=== PATIENT | male | born 1985 | race Two or more races ===

== ENCOUNTER 2017-06-06 11:37 | Emergency (ER) | payer MEDICAID ==
[~2017-06-06] VITALS: Ht 172.7 cm; Wt 88.0 kg
[2017-06-06 11:49] VITALS: BP 146/99
== END 2017-06-06 14:10 | disposition home or self-care (01) ==
LOC: ER 11:37
DX: M79.1 Myalgia (principal); M54.2 Cervicalgia
CPT/HCPCS: 72100; 72125

== ENCOUNTER 2017-06-28 21:37 | Emergency (ER) | payer MEDICAID ==
[~2017-06-28] VITALS: Ht 175.3 cm; Wt 90.7 kg
[2017-06-28 22:53] LABS: Basophils # (auto) 0.2 uL; Basophils % (auto) 1.1 % (0.0-2.0); Eosinophils # (auto) 0.2 uL; Eosinophils % (auto) 1.1 % (0.0-7.0); Hematocrit 46.7 % (41.0-53.0); Hemoglobin 15.6 g/dL (13.5-17.5); Lymphocytes # (auto) 2.3 uL; Lymphocytes % (auto) 15.9 % (10.0-50.0); Mean Corpuscular Hemoglobin 30.4 pg (28.0-32.0); Mean Corpuscular Hgb Conc. 33.5 g/dL (32.0-36.0); Mean Corpuscular Volume 90.8 fL (80.0-100.0); Monocytes # (auto) 1.9 uL; Monocytes % (auto) 13.4 % (0.0-12.0); Neutrophils % (auto) 68.5 % (37.0-80.0); Platelet Count (auto) 346 10^3/uL (140-450); Red Blood Cells 5.14 10^6/uL (4.5-5.90); Red Cell Distribution Width 13.3 % (11.8-14.3); White Blood Cell 14.5 10^3/uL (4.4-10.8)
[2017-06-28 23:09] LABS: Potassium 3.9 mmol/L (3.5-5.1)
[2017-06-28 23:10] LABS: Albumin 3.8 g/dL (3.4-5.0); BUN/Creatinine Ratio 14.7; Bilirubin, Total 0.6 mg/dL (0.2-1.0); Calcium 8.4 mg/dL (8.5-10.1); Total Protein 8.4 g/dL (6.4-8.2)
[2017-06-29] MEDS ORDERED: KETOROLAC TROMETH 60MG/2ML VIAL IM ONE (07:00)
[2017-06-29] MEDS ORDERED: methylPREDNISolone SOD SUCC 125 MG/2 ML VL IM ONE (07:00)
[2017-06-29 07:32] VITALS: BP 182/124
== END 2017-06-29 08:05 | disposition home or self-care (01) ==
LOC: ER 21:37
DX: M10.9 Gout, unspecified (principal); B99.8 Other infectious disease
CPT/HCPCS: 36415; 73110; 73130; 80053; 83605; 84550; 85025; 87040; 96372; 99285; J1885; J2930

== ENCOUNTER 2018-01-12 10:02 | Emergency (ER) | payer MEDICAID ==
[~2018-01-12] VITALS: Ht 167.6 cm; Wt 88.5 kg
[2018-01-12 10:09] VITALS: BP 150/104
[2018-01-12] MEDS ORDERED: PENICILLIN G BENZ 1200000 UNITS/2 ML SYRG IM ONE (12:15)
== END 2018-01-12 12:53 | disposition home or self-care (01) ==
LOC: ER 10:02
DX: J02.9 Acute pharyngitis, unspecified (principal)
CPT/HCPCS: 87804; 87880; 96372; 99284; J0561

== ENCOUNTER 2019-03-12 22:03 | Emergency (ER) | payer SELFPAY ==
[~2019-03-12] VITALS: Ht 177.8 cm; Wt 83.9 kg
[2019-03-12 23:05] VITALS: BP 169/99
== END 2019-03-13 00:26 | disposition left against medical advice (07) ==
LOC: ER 22:03
DX: M79.672 Pain in left foot (principal); M79.671 Pain in right foot; Z53.21 Procedure and treatment not carried out due to patient leaving prior to being seen by health care provider
CPT/HCPCS: 36415; 84550

== ENCOUNTER 2024-01-04 11:09 | Emergency (ER) | payer MEDICAID, OTHER ==
[~2024-01-04] VITALS: Ht 167.6 cm; Wt 95.5 kg
[2024-01-04 11:41] VITALS: BP 147/109; PULSE 100; RESP 14; TEMP 98; O2SAT 96
[2024-01-04 12:37] LABS: Chloride 109 mmol/L (98-107); Potassium 3.9 mmol/L (3.5-5.1); Sodium 140 mmol/L (136-145)
[2024-01-04 12:38] LABS: Anion Gap 7 (5-15); Basophils # (auto) 0.1 10 ^3/uL (0-0.2); Basophils % (auto) 0.8 % (0.0-2.0); Calcium 9.4 mg/dL (8.7-10.4); Carbon Dioxide 24 mmol/L (20-31); Eosinophils # (auto) 0.3 10 ^3/uL (0-0.8); Eosinophils % (auto) 1.9 % (0.0-7.0); Hematocrit 43.9 % (41.0-53.0); Lymphocytes # (auto) 2.3 10 ^3/uL (0.4-5.4); Lymphocytes % (auto) 17.3 % (10.0-50.0); Mean Corpuscular Hgb Conc. 34.3 g/dL (32.0-36.0); Mean Corpuscular Volume 87.4 fL (80.0-100.0); Monocytes % (auto) 15.4 % (0.0-12.0); Neutrophils # (auto) 8.5 10 ^3/uL (1.6-8.6); Neutrophils % (auto) 64.6 % (37.0-80.0); Platelet Count (auto) 417 10^3/uL (140-450); Red Blood Cells 5.02 10^6/uL (4.5-5.90); Red Cell Distribution Width 14.9 % (11.8-14.3); White Blood Cell 13.2 10^3/uL (4.4-10.8)
[2024-01-04 12:43] LABS: BUN/Creatinine Ratio 10.6 (10.0-20.0); Blood Urea Nitrogen 16 mg/dL (9-23); Glucose 89 mg/dL (74-106)
[2024-01-04] MEDS: KETOROLAC TROMETH 60MG/2ML VIAL IM ONE (12:52)
[2024-01-04] MEDS ORDERED: BACL10TA PO (12:59)
[2024-01-04] MEDS ORDERED: IBUP-1456 PO (12:59)
== END 2024-01-04 13:13 | disposition home or self-care (01) ==
LOC: ER 11:20
DX: M23.91 Unspecified internal derangement of right knee (principal); Z79.1 Long term (current) use of non-steroidal anti-inflammatories (NSAID); M77.8 Other enthesopathies, not elsewhere classified
CPT/HCPCS: 36415; 73562; 80048; 84550; 85025; 96372; 99284; J1885

== ENCOUNTER 2024-12-07 22:54 | Emergency (ER) | payer OTHER ==
[~2024-12-07] VITALS: Ht 170.2 cm; Wt 94.3 kg
[~2024-12-07 22:54] MED LIST: BACL10TA PO; IBUP-1456 PO
[2024-12-07 22:55] VITALS: BP 158/103; RESP 16; TEMP 97.6; O2SAT 99
[2024-12-08 00:30] VITALS: PULSE 92
--- NOTE | 2024-12-12 09:51 | ECG ---
[facility] Test Date: 2024-12-07 Test Time: 23:07:02 Pat Name: ABENA ROBLES Department: [facility] ED Patient ID: [facility]-[id number] Room: Gender: M Faculty Support Coordinator: : 1985 Requested By: MANUEL ALCARAZ Order Number: [id number] Reading MD: Mckinley Banks Measurements Intervals [place] Rate: 92 P: 17 NV: 133 QRS: 7 QRSD: 92 T: -20 QT: 370 QTc: 458 Interpretive Statements Sinus rhythm Biatrial enlargement Left ventricular hypertrophy Nonspecific T abnormalities, inferior leads Borderline ST elevation, lateral leads Baseline wander in lead(s) V6 Electronically Signed On 12-12-2024 15:10:42 PDT by Mckinley Banks Please click the below link to view image of tracing.
== END 2024-12-08 03:10 | disposition left against medical advice (07) ==
LOC: ER 22:56
DX: I10 Essential (primary) hypertension (principal); Z53.21 Procedure and treatment not carried out due to patient leaving prior to being seen by health care provider
CPT/HCPCS: 93005